=== PATIENT | female | born 1995 | race Caucasian/White ===

== ENCOUNTER 2019-06-17 06:33 | Inpatient (IN) ==
[2019-06-17] MEDS ORDERED: Famotidine 20 MG/2 ML VIAL IVP PRN (07:25)
[2019-06-17] MEDS ORDERED: Naloxone 0.4 MG/ML INJ IVP PRN (07:25)
[2019-06-17] MEDS ORDERED: *HR* Nalbuphine 10 MG/ML AMPUL IVP PRN (07:25)
[2019-06-17] MEDS ORDERED: Metoclopramide 10 MG/2 ML VIAL IVP PRN (07:25)
[2019-06-17] MEDS ORDERED: Ringers Solution, Lactated 1,000 ML IVC SCH (07:30)
[2019-06-17] MEDS ORDERED: miSOPROStol 25 MCG TABLET PO SCH (08:00)
[2019-06-17] MEDS ORDERED: miSOPROStol 100 MCG TABLET ONE (09:01)
[2019-06-17] MEDS ORDERED: Oxytocin 20 units/ LR 1000 mL 20 UNIT/1,000 ML BAG IVC ONE (13:16)
[2019-06-17] MEDS ORDERED: Ringers Solution, Lactated 1,000 ML ONE (13:19)
[2019-06-17 18:54] LABS: Amphetamine Screen,Urine Negative ng/mL (Cutoff=1000); Barbiturate Screen,Urine Negative ng/mL (Cutoff=200); Benzodiazepines Screen,Urine Negative ng/mL (Cutoff=200); Cannabinoid Screen,Urine Negative ng/mL (Cutoff = 50); Cocaine Screen,Urine Negative ng/mL (Cutoff= 300); Opiate Screen,Urine Negative ng/mL (Cutoff=300); Phencyclidine Screen,Urine Negative ng/mL (Cutoff=25)
[2019-06-17] MEDS ORDERED: *HR* Nalbuphine 10 MG/ML AMPUL ONE (18:56)
[2019-06-17 19:01] LABS: Basophils # 0.1 K/mcL (0.0-0.2); Basophils % 0.5 %; Eosinophils # 0.2 K/mcL (0.0-0.6); Eosinophils % 1.2 %; Hematocrit 34.3 % (35.3-44.9); Hemoglobin 11.4 g/dL (11.5-15.4); Immature Granulocytes % 1.2 % (0-4); Lymphocytes # 2.8 K/mcL (0.6-4.6); Lymphocytes % 17.8 %; Mean Corpuscular HGB Conc 33.2 g/dL (31.6-35.5); Mean Corpuscular Hemoglobin 29.2 pg (28.0-33.3); Mean Corpuscular Volume 87.7 fL (83.0-100.0); Mean Platelet Volume 9.3 fL (9.4-12.4); Monocytes # 0.7 K/mcL (0.0-1.3); Monocytes % 4.3 %; Neutrophils # 11.6 K/mcL (1.6-8.9); Platelet Count 307 K/mcL (140-400); Red Blood Count 3.91 M/mcL (3.82-4.97); Red Cell Distribution Width 15.8 % (11.5-14.5); White Blood Count 15.5 K/mcL (4.3-11.1)
[2019-06-17] MEDS ORDERED: Epidural Premix (fent/bupiv) 110 ML EP ONE (21:25)
[2019-06-17] MEDS ORDERED: Epidural Premix (fent/bupiv) 110 ML EP SCH (21:30)
[2019-06-18] MEDS ORDERED: Oxytocin 20 units/ LR 1000 mL 20 UNIT/1,000 ML BAG IVC ONE (01:44)
[2019-06-18] MEDS ORDERED: Acetaminophen 325 MG TABLET PO PRN (02:38)
[2019-06-18] MEDS ORDERED: Oxytocin 20 units/ LR 1000 mL 20 UNIT/1,000 ML BAG IVC SCH (02:38)
[2019-06-18] MEDS: Ibuprofen 600 MG TABLET PO PRN ×2 (08:10→19:17)
[2019-06-18] MEDS: Prenatal Vit/FA 1 EACH TABLET PO SCH (08:10)
[2019-06-19] MEDS: Ibuprofen 600 MG TABLET PO PRN (04:07)
[2019-06-19 07:51] VITALS: BP 112/75
[2019-06-19] MEDS: Prenatal Vit/FA 1 EACH TABLET PO SCH (09:09)
== END 2019-06-19 11:45 | disposition home or self-care (01) | DRG 560 ==
LOC: 1NENULAB 06:33 → 1NENUOBS 06-18 02:32
PROVIDERS: ADMIT Obstetrics & Gynecology; ATTEND Obstetrics & Gynecology